=== PATIENT | female | born 1975 | race Caucasian/White ===

== ENCOUNTER → 2017-03-24 | Outpatient (REF) | payer OTHER ==
[2017-03-24 18:51] LABS: PROGESTERONE < 0.2 NG/ML
[2017-03-24 18:52] LABS: ESTRADIOL 110.3 PG/ML; LUTEINIZING HORMONE 12.8 mIU/mL
== END ==
LOC: M LABDRAW1 17:00
PROVIDERS: ATTEND Physician Assistant Medical
DX: F43.0 Acute stress reaction (principal)

== ENCOUNTER → 2017-04-15 | Outpatient (CLI) | payer OTHER ==
--- NOTE | 2017-04-15 10:55 | REP ---
Digital diagnostic bilateral mammography with CAD and focused left breast sonography: History: Left breast cyst. Pea-sized palpable lump left breast three o'clock position times 6 months. Baseline right breast mammogram. Findings: A skin marker is affixed to the skin at the site of the palpable lump and routine views of the left breast are augmented by magnified diagnostic images. Routine views of the right breast were obtained. These show scattered fibroglandular elements bilaterally. No dominant density is seen at the site of the palpable lump on the left or elsewhere on either side. No microcalcification, architectural distortion, or worrisome skin change is seen. Sonographic findings: The left breast is scanned from 11 o'clock to 1 o'clock on either side of the palpable area at 12 o'clock. This is the location of the palpable lump according to the patient. Fairly homogeneous fibroglandular background echotexture is seen. No cyst, mass or acoustic shadowing is seen. The requisition states that the lump is at 3 o'clock and this area was scanned as well. Normal stromal elements are seen here. No sonographic finding. Impression: BIRADS category 1 negative bilateral breast imaging. This negative report should not dissuade one from biopsy of a palpable lump depending on its clinical characteristics. Clinical follow-up is advised. BI-RADS/ACR category 1 mammogram. Negative. Routine annual screening mammography (for women over age 40). This mammogram was interpreted with the aid of an FDA-approved computer-aided detection system. The patient states she had a clinical breast exam in March 2017 The patient letter being requested is m#[id number]. Signed by Herson Cannon MD 04/15/2017 06:31 P
== END ==
LOC: M RAD 09:19
PROVIDERS: ATTEND Physician Assistant
DX: N60.02 Solitary cyst of left breast (principal)
CPT/HCPCS: 76642; G0204

== ENCOUNTER → 2018-04-19 | Outpatient (CLI) | payer OTHER ==
[2018-04-19 13:45] LABS: THYROGLOBULIN ANTIBODY 30.6 U/ML (<60.0); THYROID PEROXIDASE ANTIBODY 54.6 U/ML (<60.0)
[2018-04-19 19:12] LABS: ALKALINE PHOSPHATASE 76 U/L (45-117); ALT/SGPT 21 U/L (12-78); ANION GAP 9 MEQ/L (8-16); AST/SGOT 18 U/L (7-37); BILIRUBIN,TOTAL 0.3 MG/DL (0.2-1.0); BLOOD UREA NITROGEN 15 MG/DL (7-18); CALCIUM LEVEL 9.3 MG/DL (8.5-10.1); CARBON DIOXIDE LEVEL 25 MEQ/L (21-32); CHLORIDE LEVEL 109 MEQ/L (98-107); CREATININE FOR GFR 1.02 MG/DL (0.55-1.30); FREE T4 1.02 NG/DL (0.76-1.46); GLOMERULAR FILTRATION RATE > 60.0 (>58); GLUCOSE, FASTING 82 MG/DL (70-100); POTASSIUM SERUM 4.7 MEQ/L (3.5-5.1); SODIUM LEVEL 143 MEQ/L (136-145); TOTAL PROTEIN 6.8 GM/DL (6.4-8.2)
[2018-04-19 19:14] LABS: ALBUMIN/GLOBULIN RATIO 1.71 (1.00-1.93)
[2018-04-19 22:57] LABS: ESTIMATED AVERAGE GLUCOSE 97 MG/DL (60-110)
== END ==
LOC: M SMT 08:36
DX: R63.5 Abnormal weight gain (principal)
CPT/HCPCS: 84443

== ENCOUNTER → 2018-05-25 | Outpatient (CLI) | payer OTHER | LOC: M RAD 10:01 | DX: Z12.31 Encounter for screening mammogram for malignant neoplasm of breast (principal) | CPT/HCPCS: 77067 ==

== ENCOUNTER → 2018-12-31 | Outpatient (CLI) | payer OTHER ==
[2018-12-31 08:16] LABS: BASO % 0.6 % (0.0-1.0); EOS # 0.2 10^3/uL (0.0-0.50); EOS % 4.6 % (0.0-3.0); HEMATOCRIT 39.3 % (36.0-47.0); HEMOGLOBIN 12.8 g/dl (12.0-15.5); LYMPH # 1.3 10^3/uL (1.5-4.5); LYMPH % 27.8 % (24.0-44.0); MEAN CORPUSCULAR HEMOGLOBIN 28.6 pg (27.0-33.0); MEAN CORPUSCULAR HGB CONC 32.6 g/dl (32.0-36.5); MEAN CORPUSCULAR VOLUME 87.9 fl (80.0-96.0); MONO # 0.5 10^3/uL (0.0-0.8); MONO % 10.1 % (0.0-5.0); NEUTROPHILS # 2.7 10^3/uL (1.8-7.7); NEUTROPHILS % 56.7 % (36.0-66.0); PLATELET COUNT, AUTOMATED 149 10^3/uL (150-450); RED BLOOD COUNT 4.47 10^6/uL (4.00-5.40); WHITE BLOOD COUNT 4.7 10^3/uL (4.0-10.0)
[2018-12-31 08:53] LABS: ALBUMIN 3.7 GM/DL (3.2-5.2); BILIRUBIN,TOTAL 0.4 MG/DL (0.2-1.0); CALCIUM LEVEL 8.8 MG/DL (8.5-10.1); CHOLESTEROL RISK RATIO 3.206 (<5); CREATININE FOR GFR 1.09 MG/DL (0.55-1.30); FREE T4 0.97 NG/DL (0.76-1.46); GLOMERULAR FILTRATION RATE 58.6 (>58); POTASSIUM SERUM 4.8 MEQ/L (3.5-5.1); THYROID STIMULATING HORMONE 3.02 uIU/ML (0.358-3.740); TOTAL PROTEIN 6.3 GM/DL (6.4-8.2)
== END ==
LOC: M LAB 07:30
PROVIDERS: ATTEND Physician Assistant
DX: Z13.29 Encounter for screening for other suspected endocrine disorder (principal)